=== PATIENT | male | born 1950 | race Caucasian/White ===

== ENCOUNTER 2016-08-18 11:47 | Emergency (ER) | payer OTHER ==
[2015-12-13 23:53] VITALS: BMI 37.9
[~2016-08-18 11:47] MED LIST: FLOMAX0.4 MG PO; SYNTHROID75 MCG PO; TRAZODONE HCL50 MG PO
[2016-08-18 12:43] LABS: BASOPHILS 0.2 % (0-2); EOSINOPHILS 2.4 % (0-7); HEMATOCRIT 47.1 % (42.0-54.0); HEMOGLOBIN 15.7 g/dL (13.5-17.5); IMMATURE GRANULOCYTES 0.2 % (0-5); LYMPHOCYTES 17.4 % (15-50); MCHC 33.3 g/dL (31.0-37.0); MCV 93.1 fL (80.0-100.0); MEAN PLATELET VOLUME 10.2 fL (7.4-10.4); MONOCYTES 5.9 % (2-11); NEUTROPHILS 73.9 % (40-80); PLATELET COUNT 151 10x3/uL (130-400); RBC 5.06 10x6/uL (4.20-6.10); RDW 13.4 % (11.5-14.5); WBC 12.6 10x3/uL (4.8-10.8)
[2016-08-18 13:08] LABS: ALBUMIN 3.9 g/dL (3.4-5.0); ANION GAP 13.2 mmol/L (8-16); BILIRUBIN - TOTAL 0.58 mg/dL (0.2-1.3); CALCIUM 9.8 mg/dL (8.5-10.1); CARBON DIOXIDE 27.6 mmol/L (21.0-32.0); CREATININE - SERUM 1.5 mg/dL (0.6-1.3); POTASSIUM - SERUM 3.8 mmol/L (3.5-5.1); PROTEIN - SERUM 8.2 g/dL (6.4-8.2)
[2016-08-18 13:12] LABS: APPEARANCE HAZY (CLEAR); BACTERIA FEW /hpf (NONE SEEN); BILIRUBIN NEGATIVE (NEGATIVE); COLOR YELLOW (YELLOW); EPITHELIAL CELLS 0-5 /hpf (0-5); GLUCOSE NEGATIVE (NEGATIVE); KETONE SMALL mg/dL (NEGATIVE); LEUKOCYTE ESTERASE NEGATIVE (NEGATIVE); NITRITE NEGATIVE (NEGATIVE); PROTEIN TRACE mg/dL (NEGATIVE); SPECIFIC GRAVITY 1.025 (1.005-1.020); UROBILINOGEN NORMAL (NORMAL); WHITE CELLS - URINE OCC /hpf (0-5)
[2016-08-19] MEDS ORDERED: OMEPRAZOLE20 M1 PO (16:12)
[2016-08-19] MEDS ORDERED: TORADOL10 MG PO (16:13)
[2016-08-19] MEDS ORDERED: NORCO 7.5/325 T1 TA1 PO (16:14)
[2016-08-19] MEDS ORDERED: IPRATROPIUM BR42 MCG NASAL (16:16)
[2016-08-19] MEDS ORDERED: FLUTICASONE PRO16 GM NASAL (16:16)
== END 2016-08-18 18:23 | disposition home or self-care (01) ==
LOC: D.ER 11:47
PROVIDERS: Emergency Medicine
DX: R10.9 Unspecified abdominal pain (principal); R11.2 Nausea with vomiting, unspecified; F32.9 Major depressive disorder, single episode, unspecified

== ENCOUNTER 2016-08-19 15:13 | Day surgery (SDC) | payer MEDICARE, OTHER ==
[~2016-08-19] VITALS: Ht 175.3 cm; Wt 115.9 kg
[2016-08-19] VITALS (10 sets, daily range): BP systolic 135–154; BP diastolic 78–93; Ht 175.3 cm; Wt 115.9 kg
[2016-08-19 15:39] LABS: BASOPHILS 0.2 % (0-2); EOSINOPHILS 4.4 % (0-7); HEMATOCRIT 46.1 % (42.0-54.0); HEMOGLOBIN 15.4 g/dL (13.5-17.5); IMMATURE GRANULOCYTES 0.2 % (0-5); LYMPHOCYTES 17.2 % (15-50); MCH 31.6 pg (26.0-34.0); MCHC 33.4 g/dL (31.0-37.0); MCV 94.5 fL (80.0-100.0); MEAN PLATELET VOLUME 9.9 fL (7.4-10.4); MONOCYTES 10.1 % (2-11); NEUTROPHILS 67.9 % (40-80); PLATELET COUNT 125 10x3/uL (130-400); RBC 4.88 10x6/uL (4.20-6.10); RDW 13.4 % (11.5-14.5)
[2016-08-19 16:01] LABS: ANION GAP 11.1 mmol/L (8-16); CALCIUM 9.4 mg/dL (8.5-10.1); CARBON DIOXIDE 29.5 mmol/L (21.0-32.0)
[2016-08-19 16:08] LABS: CREATININE - SERUM 2.1 mg/dL (0.6-1.3); POTASSIUM - SERUM 4.6 mmol/L (3.5-5.1)
[2016-08-19] MEDS ORDERED: OMEPRAZOLE20 M1 PO (16:12)
[2016-08-19] MEDS ORDERED: TORADOL10 MG PO (16:13)
[2016-08-19] MEDS ORDERED: NORCO 7.5/325 T1 TA1 PO (16:14)
[2016-08-19] MEDS ORDERED: IPRATROPIUM BR42 MCG NASAL (16:16)
[2016-08-19] MEDS ORDERED: FLUTICASONE PRO16 GM NASAL (16:16)
[2016-08-20 00:15] VITALS: BP 139/76
[2016-08-20 01:15] VITALS: BP 124/76
[2016-08-20 04:00] VITALS: BP 121/77
[2016-08-20 08:17] VITALS: BP 128/77
--- NOTE | 2016-08-20 08:18 | OP ---
PATIENT NAME: KAI PERSAUD MEDICAL RECORD: [id number] :50 LOCATION:[id number] ADMISSION DATE:08/19/16 SURGEON: CASPER HIRSCH MD DATE OF OPERATION: 08/19/2016 SURGEON: Casper Hirsch MD. ANESTHESIA: General anesthesia by Dr. Story and Dayana Augustine CRNA. PREOPERATIVE DIAGNOSIS: Left proximal ureteral 8 mm stone. FINDINGS: Radiodense 10 mm left proximal ureteral stone, also right lung radiodensity. PROCEDURES: Cystoscopy, left ureteroscopy and holmium laser lithotripsy, left ureteral stent insertion 6-Romanian x 24 cm with string attached. SPECIMENS: Left ureteral stone. ESTIMATED BLOOD LOSS: None. COMPLICATIONS: Possible right front incisor knocked out during anesthesia intubation. CLINICAL HISTORY: This is a 65-year-old male, who has a prior history of kidney stones. They were treated in the past by Dr. Briggs at [facility]. He came to the Emergency Room yesterday with acute left flank pain and he recognized it for renal colic. CT scan showed an 8 mm stone in the left proximal ureter causing hydronephrosis of the left kidney. He saw me today in the clinic and due to the size of the stone, it was unlikely that he would spontaneously pass the stone. He has been n.p.o. since midnight. He comes now to have the left ureteral stone removed by ureteroscopy and holmium laser lithotripsy. He was given Ancef 1 gram IV specifications checker to the OR. DESCRIPTION OF PROCEDURE: The patient was given induction of general anesthesia. After he was intubated, the PROCESSING SPEC noted that there was bleeding from the mouth. Examination showed that there was an empty socket on the upper gum where they would have been incisor. This was on the right side. She suctioned the mouth in order to try to find a loose tooth that may have gone into the mouth. Also, manual palpation did not reveal any loose tooth. Once we had prepped and draped the patient after placing him into dorsal lithotomy position, we used the C-arm on the cysto table to fluoro his chest. A small radiodense nodule in the right mid lung field somewhat distal to the endotracheal tube was noted. We do not have any previous x-rays to know if this lung nodule has been present before. The bed was not able to move sufficiently down in order to visualize his head and neck. We proceeded with the surgery. A 21-Romanian cystoscope was used with a 30-degree lens for visualization. His urethra had been dilated to 28-Romanian first before putting in the scope. The penile urethra was normal. 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 Inside the bladder shows no renal tumors. He has single ureteral orifices on each side, which were extremely hard to visualize. Finally, I managed to find the left ureteral orifice. The difficulty was in the bladder neck deflecting the scope, so that it was hard to visualize the trigonal region of the bladder. An open-ended ureteral catheter was inserted and we obtained a retrograde pyelogram on each side. On the right OPERATIVE REPORT [id number] KAI PERSAUD side, there was no obstruction. On the left side, the column of contrast went up to the stone and stopped. Through the lumen of the open-ended ureteral catheter, we inserted a Sensor wire into the renal pelvis. The open-ended ureteral catheter was then removed entirely. Over the wire, we inserted a UroMax 21-Romanian x 4 cm ureteral dilation balloon. This was placed into the left ureteral orifice and the balloon was inflated to 18 atmospheres of pressure for a few seconds. The balloon was then deflated and removed entirely. At this point, the cystoscope was removed, leaving the guidewire in place. We went adjacent to the guidewire with the rigid ureteroscope. We found the stone in the ureter, it was impacted quite tightly. We placed a 500 micron holmium laser fiber up against the stone and using the holmium laser, we were able to fragment the stone into multiple fragments. We then placed a 4 wire 0-tip basket 3-Romanian in size up into the ureter and took all the fragments out with multiple passes through the ureteroscope. The stone and ureteroscope were removed en bloc every time to remove the stone. Finally, we could see no further stones on ureteroscopy. The ureteroscope was then removed entirely and the wire was backloaded on the cystoscope. Over the wire, we inserted a 6-Romanian x 24 cm left ureteral stent. Once the stent was in correct position, we slowly withdrew the wire to allow the proximal end of the stent to coil in the renal pelvis. We then pushed the lower end of the stent into the bladder using the pusher. The guidewire was entirely removed. The bladder was emptied through the cystoscope. The string on the distal end of the stent is maintained. It hangs out of the urethra. It was tied to itself and cut shorter. We then moved the patient down on the table so that we could visualize his head and neck. Fluoroscopy was done using a cysto table C-arm. The head and neck did not reveal any radiodensity that could be suggestive of a stone. We had a debate as to whether or not to ask for bronchoscopy immediately. However, Dr. Wan has opinion that bronchoscopy will be difficult because we do not know which bronchus to aim for. The plan is to keep the patient in for overnight observation. I will ask for a CT scan of the chest with and without contrast. If this is a lung nodule, it needs to be worked up anyway. Also, we took a formal views of the head and neck and the chest using a portable C-arm and plates. TRANSINT:[id number] Voice Confirmation ID: [id number] DOCUMENT ID: [id number] CASPER HIRSCH MD at 0818 CC: [id number] DICTATION DATE: 08/19/161934 LEAF BINNER: 08/20/16 0340 ADM IN [facility] [address] [place] [address]
[2016-08-20 12:03] VITALS: BP 124/68
== END 2016-08-20 12:25 | disposition home or self-care (01) ==
LOC: OBSVTIME → D.OPS 15:13 → OBSVTIME 19:30 → D.OPS 19:30 → D.MS 19:30 → D.OPS 08-20 12:25 → D.MS 08-20 12:25
PROVIDERS: Anesthesiology; Urology
DX: N20.1 Calculus of ureter (principal); Z87.442 Personal history of urinary calculi; R91.8 Other nonspecific abnormal finding of lung field; Z01.812 Encounter for preprocedural laboratory examination

== ENCOUNTER → 2019-11-24 10:58 | Outpatient (CLI) | payer MEDICARE, OTHER ==
[2016-08-19 22:23] VITALS: BMI 37.7
[~2019-11-24 10:58] MED LIST changes: +FLUTICASONE PRO16 GM NASAL; +IPRATROPIUM BR42 MCG NASAL; +NORCO 7.5/325 T1 TA1 PO; +OMEPRAZOLE20 M1 PO; +TORADOL10 MG PO
== END | disposition home or self-care (01) ==
LOC: D.MRI 10:58
PROVIDERS: ATTEND Clinical Nurse Specialist Family Health
DX: M47.896 Other spondylosis, lumbar region (principal)